=== PATIENT | female | born 1955 | race African-American/Black ===

== ENCOUNTER 2016-08-04 13:59 | Outpatient (CLI) | payer BC ==
--- NOTE | 2016-08-04 22:15 | RAD ---
PELVIS ONE VIEW 08/04/16 The bony pelvis appears intact with no evidence of fracture, area of bony destruction or other acute change. The hip joints are symmetrical with minor amounts of spurring but no significant narrowing of the joint spaces. I see no abnormality around either sacral notch. The symphysis shows no widenin g or offset and the SI joints are symmetrical. IMPRESSION: No acute bony finding. POS: HOME
--- NOTE | 2016-08-04 22:16 | RAD ---
RIGHT HIP TWO VIEWS 08/04/16 No fracture or area of bony destruction was seen. All bony structures were unremarkable for age. Min or bony spurring is seen around the hip joint. The area round the sciatic notch was unremarkable. IMPRESSION: No significant findings. POS: HOME
== END 2016-08-04 14:00 | disposition home or self-care (01) ==
LOC: BURRAD 13:59
PROVIDERS: ATTEND Family Medicine
DX: M54.31 Sciatica, right side (principal)
CPT/HCPCS: 72170

== ENCOUNTER 2019-01-25 10:49 | Outpatient (CLI) | payer BC ==
--- NOTE | 2019-01-25 20:43 | RAD ---
LEFT HIP TWO VIEWS: 01/25/19 Comparison is made with the prior of 08/04/16. No fracture, dislocation, or area of bony destruction was seen. The width of the joint space is no di fferent than before. There is perhaps the beginnings of a little bony spurring around the joint but i t is no different than before. The left SI joint showed no acute change. IMPRESSION: No acute bony findings. Exam unchanged from 2017. POS: HOME
--- NOTE | 2019-01-25 20:44 | RAD ---
LUMBAR SPINE THREE VIEWS: 01/25/19 Comparison is made with an 12/02/16 study. There appears to be a synthetic disc placed at the L4-L5 level since the last exam. I do not apprecia te any anterolisthesis on this exam. No fracture, dislocation, or new disc space narrowing was seen. The SI joints are symmetrical. Slight curvature of the spine could be positional. IMPRESSION: No acute bony finding. POS: HOME
--- NOTE | 2019-01-25 20:46 | RAD ---
LEFT SHOULDER THREE VIEWS 01/25/19 Comparison is made with a 12/30/2009 study. No fracture or dislocation was seen, however, the AC joint is widened, much more so than before. Ther e is no offset of the clavicle and acromion. All visible bones appeared intact. IMPRESSION: Interval widening of the AC joint, presumably due to prior AC separation. POS: HOME
--- NOTE | 2019-01-25 20:48 | RAD ---
RIGHT SHOULDER THREE VIEWS: 01/25/19 Comparison is made with a 06/23/13 study. In the interval, the patient has had shoulder surgery. Additionally, the AC joint has become much wid er. I do not know if this is merely due to trauma or if there was some resection of the distal clavic le. All remaining bones appear intact. There are no acute bony changes. IMPRESSION: Wide AC joint. POS: HOME
== END 2019-01-25 10:50 | disposition home or self-care (01) ==
LOC: BURRAD 10:49
PROVIDERS: ATTEND Nurse Practitioner Family
DX: M25.511 Pain in right shoulder (principal); M25.512 Pain in left shoulder; M25.552 Pain in left hip; M25.811 Other specified joint disorders, right shoulder; M25.812 Other specified joint disorders, left shoulder
CPT/HCPCS: 72100

== ENCOUNTER 2022-05-12 08:06 | Outpatient (CLI) | payer OTHER | END 2022-05-12 08:07 | disposition home or self-care (01) | LOC: BURRAD 08:06 | PROVIDERS: ATTEND Family Medicine | DX: M54.41 Lumbago with sciatica, right side (principal); M47.816 Spondylosis without myelopathy or radiculopathy, lumbar region | CPT/HCPCS: 72110 ==